=== PATIENT | female | born 1930 | race Caucasian/White ===

== ENCOUNTER 2020-06-03 14:52 | Emergency (ER) | payer MEDICARE, BC ==
[2020-06-03] MEDS ORDERED: Sodium Chloride 0.9% 10 ML Syringe FLUSH PRN (14:58)
[2020-06-03] MEDS ORDERED: Sodium Chloride 0.9% 1,000 ML IV SCH (15:00)
--- NOTE | 2020-06-03 15:39 | EDM.PDOC ---
ED HPI GENERAL MEDICAL PROBLEM - General Chief Complaint: Cardiovascular Problem Stated Complaint: RAPID RESPONSE SENT FROM [facility] Time Seen by Provider: 06/03/20 14:53 Source of Information: Reports: Patient History Limitations: Reports: No Limitations - History of Present Illness INITIAL COMMENTS - FREE TEXT/NARRATIVE: The patient presents from [facility]. She was getting dialysis and she was done and she stood up and by the door way she fell backward and hit her head. She had no LOC but she was dazed when she fell. She said she may have been a little "woozy" before she fell. This has never happened before. She has a headache now. She has edema to the back of her right head. She is not on any blood thinners. She has no fever, chills, cough, congestion, runny nose, chest pain, shortness of breath, abdominal pain, nausea or vomiting. She has no numbness or weakness. A rapid response was called at [facility] and some of our nurses went to help. Onset: Sudden Duration: Minutes: Location: Reports: Head Quality: Reports: Sharp Severity: Moderate Improves with: Reports: None Worsens with: Reports: None Associated Symptoms: Reports: Headaches. Denies: Chest Pain, Fever/Chills, Nausea/Vomiting, Shortness of Breath Head Pain Score (Numeric/FACES): 7 - Related Data Allergies Allergy/AdvReac Type Severity Reaction Status Date / Time No Known Allergies Allergy Verified 06/03/20 14:58 Past Medical History Cardiovascular History: Reports: Hypertension Respiratory History: Reports: Other (See Below) Other Respiratory History: wears daily O2 with sleep and activity Gastrointestinal History: Reports: Other (See Below) Other Gastrointestinal History: colon CA Genitourinary History: Reports: Dialysis, Other (See Below) Other Genitourinary History: dialysis 3x week - Past Surgical History Musculoskeletal Surgical History: Reports: Hip Replacement, Knee Replacement ED ROS GENERAL - Review of Systems Review Of Systems: See Below Constitutional: Reports: No Symptoms HEENT: Reports: No Symptoms Respiratory: Reports: No Symptoms Cardiovascular: Reports: No Symptoms Endocrine: Reports: No Symptoms GI/Abdominal: Reports: No Symptoms : Reports: No Symptoms Musculoskeletal: Reports: No Symptoms Skin: Reports: No Symptoms Neurological: Reports: Headache ED EXAM, GENERAL - Physical Exam Exam: See Below Exam Limited By: No Limitations General Appearance: Alert, No Apparent Distress Ears: Normal External Exam Nose: Normal Inspection Head: Other (Edema to the right occipital region) Neck: Normal Inspection, Supple, Non-Tender Respiratory/Chest: No Respiratory Distress, Lungs Clear, Normal Breath Sounds Cardiovascular: Regular Rate, Rhythm, No Edema, No Murmur GI/Abdominal: Soft, Non-Tender, No Organomegaly, No Mass Back Exam: Normal Inspection Extremities: Normal Inspection EKG INTERPRETATION EKG Date: 06/03/20 Time: 14:52 Rhythm: NSR Rate (Beats/Min): 69 [place]: LAD-Left [place] Deviation P-Wave: Present QRS: Normal ST-T: Normal QT: Normal [place]/PQ Interval: 1st degree HB EKG Interpretation Comments: Q waves in the inferior leads Course - Vital Signs Last Recorded V/S: Last Vital Signs Temp 96.5 F L 06/03/20 15:45 Pulse 70 06/03/20 15:45 Resp 15 06/03/20 15:45 BP 191/66 H 06/03/20 15:45 Pulse Ox 93 L 06/03/20 15:45 - Orders/Labs/Meds Orders: Active Orders 24 hr Category Date Time Status Cardiac Monitoring [RC] . DIRECTED Care 06/03/20 14:58 Active EKG Documentation Completion [RC] STAT Care 06/03/20 14:59 Active Oxygen Therapy [RC] PRN Care 06/03/20 14:59 Active Peripheral IV Care [RC] . DIRECTED Care 06/03/20 14:59 Active Sodium Chloride 0.9% [Normal Saline] 1,000 ml Med 06/03/20 15:00 Active IV .BOLUS Sodium Chloride 0.9% [Saline Flush] Med 06/03/20 14:58 Active 10 ml FLUSH ASDIRECTED PRN Peripheral IV Insertion Adult [OM.PC] Stat Oth 06/03/20 14:58 Ordered Medication Orders Sodium Chloride (Normal Saline) 1,000 mls @ 500 mls/hr IV .BOLUS MEERA Last Admin: 06/03/20 15:47 Dose: 500 mls/hr Documented by: EAN Sodium Chloride (Saline Flush) 10 ml FLUSH ASDIRECTED PRN PRN Reason: Keep Vein Open Last Admin: 06/03/20 15:45 Dose: 10 ml Documented by: EAN Labs: Laboratory Tests 08/31/20 08/31/20 Range/Units 15:00 15:00 WBC 5.90 (3.98-10.04) K/mm3 RBC 3.23 L (3.98-5.22) M/mm3 Hgb 10.3 L (11.2-15.7) gm/dl Hct 32.7 L (34.1-44.9) % MCV 101.2 H D (79.4-94.8) fl MCH 31.9 (25.6-32.2) pg MCHC 31.5 L (32.2-35.5) g/dl RDW Std Deviation 44.6 (36.4-46.3) fL Plt Count 218 (182-369) K/mm3 MPV 9.9 (9.4-12.3) fl Neut % (Auto) 63.5 (34.0-71.1) % Lymph % (Auto) 23.1 (19.3-51.7) % [place] % (Auto) 7.1 (4.7-12.5) % Eos % (Auto) 5.6 (0.7-5.8) Baso % (Auto) 0.5 (0.1-1.2) % Neut # (Auto) 3.75 (1.56-6.13) K/mm3 Lymph # (Auto) 1.36 (1.18-3.74) K/mm3 [place] # (Auto) 0.42 H (0.24-0.36) K/mm3 Eos # (Auto) 0.33 (0.04-0.36) K/mm3 Baso # (Auto) 0.03 (0.01-0.08) K/mm3 Sodium 136 (136-145) mEq/L Potassium 3.2 L (3.5-5.1) mEq/L Chloride 96 L (98-107) mEq/L Carbon Dioxide 39 H (21-32) mEq/L Anion Gap 4.2 L (5-15) BUN 14 (7-18) mg/dL Creatinine 2.3 H (0.55-1.02) mg/dL Est Cr Clr Drug Dosing 14.88 mL/min Estimated GFR (MDRD) 20 (>60) mL/min BUN/Creatinine Ratio 6.1 L (14-18) Glucose 126 H (83-115) mg/dL Calcium 8.3 L (8.5-10.1) mg/dL Total Bilirubin 0.6 (0.2-1.0) mg/dL AST 15 (15-37) U/L ALT 13 L (14-59) U/L Alkaline Phosphatase 98 (46-116) U/L Troponin I 0.032 (0.00-0.056) ng/mL Total Protein 7.4 (6.4-8.2) g/dl Albumin 3.2 L (3.4-5.0) g/dl Globulin 4.2 gm/dL Albumin/Globulin Ratio 0.8 L (1-2) Meds: Medications Generic Name Dose Route Start Last Admin Trade Name Freq PRN Reason Stop Dose Admin Sodium Chloride 1,000 mls @ 500 mls/hr 06/03/20 15:00 06/03/20 15:47 Normal Saline IV 500 mls/hr .BOLUS MEERA Administration Sodium Chloride 10 ml 06/03/20 14:58 06/03/20 15:45 Saline Flush FLUSH 10 ml ASDIRECTED PRN Administration Keep Vein Open - Re-Assessments/Exams Free Text/Narrative Re-Assessment/Exam: 06/03/20 15:40 I ordered an IV NS 250mL bolus, EKG, CT of her head and labs. Her EKG shows a NSR with no acute changes. 06/03/20 16:[address] shows scalp hematoma on the posterior right side. Opacified left sphenoid sinus which is stable. Generalized atrophy. No acute intracranial abnormality is appreciated. Her Hgb is a little low at 10.3. Her K is low at 3.2. Her creatinine is elevated at 2.3. Her GFR is low at 20. Her troponin is negative. She feels better. I will discharge her home. I called her daughter to update her. Departure - Departure Time of Disposition: 16:10 Disposition: Home, Self-Care 01 Condition: Good Clinical Impression: End stage renal failure on dialysis Syncope Qualifiers: Syncope type: unspecified Qualified Code(s): R55 - Syncope and collapse Scalp hematoma Qualifiers: Encounter type: initial encounter Qualified Code(s): S00.03XA - Contusion of scalp, initial encounter Forms: ED Department Discharge Sepsis Event Note (ED) - Evaluation Sepsis Screening Result: No Definite Risk - Focused Exam Vital Signs: Vital Signs Temp Pulse Resp BP Pulse Ox 06/03/20 15:45 96.5 F L 70 15 191/66 H 93 L 06/03/20 14:53 98.0 F 70 18 157/69 H 93 L - My Orders Last 24 Hours: My Active Orders 06/03/20 14:58 Cardiac Monitoring [RC] . DIRECTED Sodium Chloride 0.9% [Saline Flush] 10 ml FLUSH ASDIRECTED PRN Peripheral IV Insertion Adult [OM.PC] Stat 06/03/20 14:59 EKG Documentation Completion [RC] STAT Oxygen Therapy [RC] PRN Peripheral IV Care [RC] . DIRECTED 06/03/20 15:00 Sodium Chloride 0.9% [Normal Saline] 1,000 ml IV .BOLUS - Assessment/Plan Last 24 Hours: My Active Orders 06/03/20 14:58 Cardiac Monitoring [RC] . DIRECTED Sodium Chloride 0.9% [Saline Flush] 10 ml FLUSH ASDIRECTED PRN Peripheral IV Insertion Adult [OM.PC] Stat 06/03/20 14:59 EKG Documentation Completion [RC] STAT Oxygen Therapy [RC] PRN Peripheral IV Care [RC] . DIRECTED 06/03/20 15:00 Sodium Chloride 0.9% [Normal Saline] 1,000 ml IV .BOLUS
--- NOTE | 2020-06-03 15:56 | CT ---
Head CT Technique: Multiple axial sections through the brain were obtained. Intravenous contrast was not utilized. Comparison: Prior head CT study of 12/13/19. Findings: Soft tissue hematoma is noted posteriorly within the scalp on the right side. Ventricles along with basal cisterns and sulci over convexities are mildly prominent. Diminished density is noted within the periventricular white matter which is most likely due to small vessel ischemic demyelination change. No evidence of intracranial hemorrhage. No midline shift or mass effect is seen. Atherosclerotic calcification is seen within the vertebral vessels and carotid siphon. Near complete opacification of the left sphenoid sinus is seen which appears stable. Other visualized sinuses show nothing acute. Visualized mastoid sinuses show nothing acute. No acute calvarial finding is seen. Impression: 1. Scalp hematoma on the posterior right side. 2. Opacified left sphenoid sinus which is stable. 3. Generalized atrophy. No acute intracranial abnormality is appreciated. Diagnostic code #3 Study was dictated in [facility]
== END 2020-06-03 16:35 | disposition home or self-care (01) ==
LOC: JD.ED 14:52
DX: S00.03XA Contusion of scalp, initial encounter (principal); I12.0 Hypertensive chronic kidney disease with stage 5 chronic kidney disease or end stage renal disease; N18.6 End stage renal disease; R55 Syncope and collapse; Z99.2 Dependence on renal dialysis; W01.0XXA Fall on same level from slipping, tripping and stumbling without subsequent striking against object, initial encounter
CPT/HCPCS: 36415; 70450; 80053; 84484; 85025; 93005; 99284; J7030; 93010; 99283

== ENCOUNTER 2022-01-24 10:24 | Emergency (ER) | payer MEDICARE, BC ==
[2022-01-24] MEDS ORDERED: Sodium Chloride 0.9% 10 ML Syringe FLUSH PRN (11:02)
[2022-01-24] MEDS ORDERED: Meclizine 12.5 MG Tab PO ONE (13:42)
[2022-01-24] MEDS ORDERED: Cefdinir 300 MG Cap PO ONE (13:48)
== END 2022-01-24 14:03 | disposition home or self-care (01) ==
LOC: JD.ED 10:24
DX: H81.10 Benign paroxysmal vertigo, unspecified ear (principal); I10 Essential (primary) hypertension
CPT/HCPCS: 36415; 70450; 80053; 81001; 83605; 83735; 83880; 85025; 86140; 87086; 93005; 99284; A9270; J3490